=== PATIENT | male | born 1970 | race Caucasian/White ===

== ENCOUNTER 2017-08-06 15:32 | Emergency (ER) | payer OTHER ==
[~2017-08-06] VITALS: Ht 182.9 cm; Wt 95.5 kg
[~2017-08-06 15:32] MED LIST: FISH OIL1 IU PO; HUMIRA40 MG/0.8 MR; MULTIPLE VITAMI1 CAP PO; ZYRTEC5 MG PO
[2017-08-06 15:38] VITALS: TEMP 97.1
[2017-08-06 16:58] LABS: SYNOVIAL FL. MONONUCLEAR 33.7 % (0-75); SYNOVIAL FLUID RBC 8000 /mm3 (0-0); SYNOVIAL FLUID WBC 546 /mm3 (200-600)
[2017-08-06 18:25] VITALS: BP 122/86; PULSE 90
[2017-08-06 19:57] LABS: SYNOVIAL FLUID COLOR PINK
[2017-08-06 19:58] LABS: SYNOVIAL FLUID APPEARANCE CLOUDY
[2017-08-06 21:31] LABS: Fluid Type SYNOVIAL (())
[2017-08-07 01:04] LABS: Lactic Acid Fluid 1.3 meq/L (())
== END 2017-08-06 18:26 | disposition home or self-care (01) ==
LOC: COL.ER 15:32
PROVIDERS: Emergency Medicine
DX: M23.92 Unspecified internal derangement of left knee (principal); M25.462 Effusion, left knee; X58.XXXA Exposure to other specified factors, initial encounter; Y92.009 Unspecified place in unspecified non-institutional (private) residence as the place of occurrence of the external cause